=== PATIENT | female | born 1990 | race Two or more races ===

== ENCOUNTER 2017-08-10 15:55 | Emergency (ER) | payer OTHER | END 2017-08-10 17:25 | disposition home or self-care (01) | LOC: M ED 15:55 | DX: L30.9 Dermatitis, unspecified (principal) | CPT/HCPCS: 99283 ==

== ENCOUNTER → 2018-01-02 | Outpatient (CLI) | payer OTHER ==
[2018-01-02 14:45] LABS: ESTIMATED AVERAGE GLUCOSE 105 MG/DL (60-110); HEMOGLOBIN A1c 5.3 %
[2018-01-02 15:00] LABS: FOLLICLE STIMULATING HORMONE 5.3 mIU/mL; LUTEINIZING HORMONE 8.3 mIU/mL
[2018-01-02 15:27] LABS: BLOOD UREA NITROGEN 11 MG/DL (7-18); CALCIUM LEVEL 8.5 MG/DL (8.5-10.1); CARBON DIOXIDE LEVEL 26 MEQ/L (21-32); POTASSIUM SERUM 4.2 MEQ/L (3.5-5.1); TOTAL PROTEIN 7.3 GM/DL (6.4-8.2)
[2018-01-02 15:37] LABS: ALKALINE PHOSPHATASE 94 U/L (45-117); ALT/SGPT 22 U/L (12-78); ANION GAP 9 MEQ/L (8-16); AST/SGOT 15 U/L (7-37); BILIRUBIN,TOTAL 0.6 MG/DL (0.2-1.0); CHLORIDE LEVEL 106 MEQ/L (98-107); CREATININE FOR GFR 0.62 MG/DL (0.55-1.30); FREE T4 1.08 NG/DL (0.76-1.46); GLOMERULAR FILTRATION RATE > 60.0 (>60); GLUCOSE, FASTING 92 MG/DL (70-100); SODIUM LEVEL 141 MEQ/L (136-145); THYROID STIMULATING HORMONE 0.972 uIU/ML (0.358-3.740)
[2018-01-02 16:30] LABS: ALBUMIN 3.8 GM/DL (3.2-5.2); ALBUMIN/GLOBULIN RATIO 1.09 (1.00-1.93)
[2018-01-04 17:28] LABS: INSULIN LEVEL 21.4 uIU/mL (2.6-24.9)
[2018-01-04 17:28] LABS: TESTOSTERONE FREE (DIRECT) 2.6 pg/mL (0.0-4.2)
== END ==
LOC: M SMT 10:15
DX: N92.6 Irregular menstruation, unspecified (principal); E66.09 Other obesity due to excess calories
CPT/HCPCS: 83001

== ENCOUNTER → 2018-05-04 | Outpatient (REF) | payer OTHER | LOC: M LAB REF 17:00 | DX: J06.9 Acute upper respiratory infection, unspecified (principal) ==

== ENCOUNTER → 2018-06-27 | Outpatient (REF) | payer OTHER ==
[~2018-06-27] MED LIST: CLAR1TAB2 PO; HYDR25OIN TOP
[2018-06-29 15:05] LABS: HPV HYBRID CAPTURE II Negative (Negative)
== END ==
LOC: M LAB REF 09:26
PROVIDERS: ATTEND Family Medicine
DX: Z12.4 Encounter for screening for malignant neoplasm of cervix (principal)

== ENCOUNTER 2018-10-31 15:31 | Emergency (ER) | payer OTHER ==
[~2018-10-31] VITALS: Ht 162.6 cm; Wt 81.8 kg
[2018-10-31] MEDS ORDERED: PHEN-239 PO (15:39)
[2018-10-31] MEDS ORDERED: excedrin (15:40)
[2018-10-31] MEDS ORDERED: KETOROLAC 60 MG/2 ML VIAL (J1885) IM ONE (16:15)
[2018-10-31] MEDS ORDERED: ONDANSETRON 4 MG ORAL DISINTEGRATING TAB (Q0162 PER 1MG) PO ONE (16:15)
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
[2018-10-31] MEDS ORDERED: ZANA4TAB PO (17:04)
[2018-10-31] MEDS ORDERED: MOBI4TAB PO (17:04)
[2018-10-31] MEDS ORDERED: ZOFR4TAB16 PO (17:05)
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
[2018-10-31 17:22] VITALS: BP 121/80
== END 2018-10-31 17:31 | disposition home or self-care (01) ==
LOC: M ED 15:31
DX: M54.2 Cervicalgia (principal); M54.6 Pain in thoracic spine; M25.561 Pain in right knee; V49.49XA Driver injured in collision with other motor vehicles in traffic accident, initial encounter; Y92.410 Unspecified street and highway as the place of occurrence of the external cause
CPT/HCPCS: 72072; 72125; 73564; 96372; 99284; J1885; Q0162